=== PATIENT | female | born 2000 | race Caucasian/White ===

== ENCOUNTER 2023-03-10 13:05 | Emergency (ER) | payer SELFPAY ==
[~2023-03-10] VITALS: Ht 175.3 cm; Wt 72.7 kg
[2023-03-10 13:21] VITALS: TEMP 98.6
[2023-03-10 14:48] VITALS: BP 126/85; PULSE 104
== END 2023-03-10 14:48 | disposition home or self-care (01) ==
LOC: COL.ER 13:05
DX: S06.0X0A Concussion without loss of consciousness, initial encounter (principal); W20.8XXA Other cause of strike by thrown, projected or falling object, initial encounter; Y92.59 Other trade areas as the place of occurrence of the external cause; Y99.0 Civilian activity done for income or pay